=== PATIENT | female | born 1975 | race African-American/Black ===

== ENCOUNTER 2019-06-14 23:04 | Inpatient (IN) | payer OTHER ==
[~2019-06-14] VITALS: Ht 165.1 cm; Wt 117.9 kg
--- NOTE | 2019-06-14 23:04 | NUR ---
PT DAISY ALS. TAKEN TO BED 6
--- NOTE | 2019-06-14 23:06 | NUR ---
Dr. Jeter examining patient.
--- NOTE | 2019-06-14 23:06 | NUR ---
44 YEAR OLD FEMALE BROUGHT IN BY AMBULANCE FROM HOME AFTER BEING VERY WEAK AND BEING UNABLE TO GET UP FROM BATHROOM. IN TRANSPORT EMS GAVE 500ML NACL, 8ML ZOFRAN IVP. PER EMS THE FAMILY REPORTED THE PT HAD NAUSEA, VOMITTING, DIARRHEA. PATIENT UPON ARRIVAL COLD, LETHARGIC. PATIENT WOULD ANSWER QUESTIONS AOX4 BUT THEN BECOME UNRESPONSIVE, THEN WAKE AND CONTINUE TO ANSWER QUESTIONS. PATIENT STATES SHE HAS SEVERE UPPER ABDOMINAL PAIN THAT RADIATES TO BACK. PATIENT DENIES BLOOD. PATIENT STATES SHE HAD A SCHEDULED MRI FOR TOMORROW FOR A HERNIA AND MASS FOUND NEAR UTERUS AREA. PATIENT IN VISIBLE DISTRESS AND SAYING IT HURTS. PATIENT BREATHING EVEN AND UNLABORED, LUNGS CLEAR BL, SKIN COOL TO TOUCH. PATIENT PLACED ON 2L O2. ERMD AT BEDSIDE, 2 NURSES AT BEDSIDE. PATIENT PLACED ON BEDSIDE MONITOR. PMH - DM2, HTN ALLERGIES - NKA
[2019-06-14] MEDS ORDERED: NACL 0.9% 1,000 ML IV ONE (23:15)
--- NOTE | 2019-06-14 23:15 | NUR ---
BLOOD PRESSURE 67/38, HEART RATE 84 ERMD MADE AWARE
--- NOTE | 2019-06-14 23:20 | NUR ---
PATIENT PLACED ON BEAR HUGGER BY MEDICAL OFFICE RECEPTIONIST DUE TO BODY BEING COLD
[2019-06-14 23:25] VITALS: BP 63/33
[2019-06-14] MEDS ORDERED: fentaNYL 0.05 MG/ML VIAL IVP ONE (23:30)
--- NOTE | 2019-06-14 23:37 | NUR ---
PER ERMD TO HOLD ORDERED FENTANYL BECAUSE BP 72/42
[2019-06-14 23:50] LABS: BASOPHILS # (AUTO) 0.1 K/uL (0.00-0.22); BASOPHILS % (AUTO) 0.7 % (0.0-2.0); EOSINOPHILS # (AUTO) 0.1 K/uL (0-0.4); EOSINOPHILS % (AUTO) 0.7 % (0.0-4.0); HEMATOCRIT 31.2 % (36-48); HEMOGLOBIN 9.8 g/dL (12.0-16.0); LYMPHOCYTES # (AUTO) 3.3 K/uL (2.5-16.5); LYMPHOCYTES % (AUTO) 22.1 % (20.5-51.1); MEAN CORPUSCULAR HEMOGLOBIN 29 pg (27-31); MEAN CORPUSCULAR HGB CONC 31 g/dL (33-37); MEAN CORPUSCULAR VOLUME 92.7 fL (80-94); MONOCYTES # (AUTO) 0.7 K/uL (0.8-1.0); MONOCYTES % (AUTO) 4.5 % (1.7-9.3); NEUTROPHILS # (AUTO) 10.9 K/uL (1.8-7.7); PLATELET COUNT (AUTO) 321 K/uL (140-450); RED BLOOD CELL COUNT(AUTO) 3.36 MIL/uL (4.20-5.40); RED CELL DISTRIBUTION WIDTH 14.7 % (11.6-13.7); WHITE BLOOD COUNT (AUTO) 15.1 K/uL (4.8-10.8)
[2019-06-14] MEDS ORDERED: NOREPINEPHRINE 4 MG in DEXTROSE 5% 250 ML IV ONE (23:55)
--- NOTE | 2019-06-15 00:02 | NUR ---
CALLED LAB TO RELEASE EMERGENCY BLOOD PER DR. POLLACK
[2019-06-15] MEDS ORDERED: NOREPINEPHRINE 4 MG/4 ML VIAL IV ONE (00:07)
[2019-06-15 00:14] LABS: ALBUMIN 3.1 g/dL (3.4-5.0); ANION GAP 15.9 (8-16); CARBON DIOXIDE 25.3 mmol/L (21-32); CREATININE 1.9 mg/dL (0.6-1.3); POTASSIUM 3.2 mmol/L (3.5-5.1); TOTAL BILIRUBIN 0.1 mg/dL (0.0-1.0)
--- NOTE | 2019-06-15 00:15 | NUR ---
PER ERMVasile TO HOLD OFF ON ORDERED LEVOPHED TO SEE BLOOD PRESSURE WITH BLOOD ADMINISTRATION
--- NOTE | 2019-06-15 00:20 | NUR ---
Consent signed by Jimy EWING and Dr Jeter agreeing to administration of blood for emergency blood transfusion. Blood has been type and crossmatched. Blood sent from blood bank. Information on unit of blood checked against patient wristband at bedside by two nurses. All information matches. Patient or responsible alliance party informed of potential complications associated with blood transfusion. Informed of possible transfusion reaction symptoms. Aware of need to notify nurse at once of itching, shortness of breath, flushing, feeling of impending doom, or other symptoms not previously present. Vital signs taken within 5 minutes prior to initiation of transfusion. RN will remain with patient for first 15 minutes of transfusion at which time vital signs will be re-assessed.
--- NOTE | 2019-06-15 00:25 | NUR ---
PT TAKEN TO CT WITH RN, EMT, AND PRODUCT DEVELOPMENT INTERN
[2019-06-15 00:34] LABS: PROTHROMBIN TIME 10.9 secs (10.8-13.4)
--- NOTE | 2019-06-15 00:35 | NUR ---
PT RETURN FROM CT
--- NOTE | 2019-06-15 00:43 | NUR ---
OUTBOUND TELEMARKETER AT BEDSIDE
--- NOTE | 2019-06-15 00:45 | NUR ---
BP 95/61, ERMD MADE AWARE
--- NOTE | 2019-06-15 00:50 | NUR ---
Dr. Faribanks examining patient.
[2019-06-15] MEDS ORDERED: NACL 0.9% 1,000 ML IV ONE (00:55)
--- NOTE | 2019-06-15 01:00 | NUR ---
CALLED LAB REQUESTING EMERGENCY BLOOD PER DR. POLLACK. LAB AWARE
--- NOTE | 2019-06-15 01:00 | NUR ---
BLOOD TRANSFUSION COMPLETE, ERMD MADE AWARE
--- NOTE | 2019-06-15 01:10 | NUR ---
PATIENT APPEARS LESS LETHARGIC, IS MORE RESPONSIVE TO ANSWERING QUESTIONS, BUT STILL WOULD BECOME UNRESPONSIVE TO QUESTIONS AT TIMES
--- NOTE | 2019-06-15 01:30 | NUR ---
PER ERMD TO NOT GIVE FENTANYL AND NOREPINEPHRINE, WILL CANCEL ORDER
--- NOTE | 2019-06-15 01:40 | NUR ---
PATIENT MORE ALERT AND AWAKE, BREATHING EVEN AND UNLABORED.
[2019-06-15 01:46] LABS: APPEARANCE,URINE CLEAR (CLEAR); BILIRUBIN,URINE NEGATIVE (NEGATIVE); BLOOD, URINE NEGATIVE (NEGATIVE); COLOR,URINE YELLOW (YELLOW); LEUKOCYTE ESTERASE ,URINE NEGATIVE (NEGATIVE); NITRITE, URINE NEGATIVE (NEGATIVE); PH,URINE 5.5 (5.0-9.0); UGLUCOSE NEGATIVE (NEGATIVE)
--- NOTE | 2019-06-15 01:55 | NUR ---
OR TEAM AT BEDSIDE
--- NOTE | 2019-06-15 01:55 | NUR ---
TRANSPORT HERE FOR PATIENT
--- NOTE | 2019-06-15 02:01 | NUR ---
TRANSPORT TEAM TO CONTINUE BLOOD TRANSFUSION
--- NOTE | 2019-06-15 02:01 | NUR ---
PATIENT TAKEN TO SURGERY
[2019-06-15] MEDS ORDERED: ceFAZolin 1,000 MG VIAL ONE (02:04)
[2019-06-15] MEDS ORDERED: HYDROcodone/APAP 7.5/325 MG 1 TAB PO PRN (02:15)
[2019-06-15] MEDS ORDERED: ACETAMINOPHEN 325 MG TAB PO PRN (02:15)
[2019-06-15] MEDS ORDERED: ONDANSETRON 4 MG/2 ML VIAL IVP PRN ×2 (02:15→04:50)
[2019-06-15 02:37] LABS: BARBITURATE, URINE NEGATIVE ng/ml (NEG <=200); BENZODIAZEPINE, URINE NEGATIVE ng/mL (NEG <=200); CANNABINOID, URINE NEGATIVE ng/mL (NEG <=50); COCAINE, URINE NEGATIVE ng/mL (NEG <=300); OPIATE, URINE NEGATIVE ng/mL (NEG <=2000); PHENCYCLIDINE SCREEN,URINE NEGATIVE ng/mL (NEG <=25)
[2019-06-15] MEDS ORDERED: ATEN25TA7 PO (02:55)
[2019-06-15] MEDS ORDERED: LISI10TA11 PO (02:55)
[2019-06-15 03:16] LABS: MAGNESIUM 1.6 mg/dL (1.8-2.4); PHOSPHORUS 6.2 mg/dL (2.5-4.9); THYROID STIMULATING HORMONE 3.75 uIU/mL (0.34-3.74)
[2019-06-15] MEDS ORDERED: METF-430 PO (03:24)
[2019-06-15] MEDS ORDERED: CALC-577 PO (03:24)
[2019-06-15] MEDS ORDERED: HYDR-5122 PO (03:24)
[2019-06-15] MEDS ORDERED: [UNRECOGNIZED DRUG - CODE] PO (03:24)
[2019-06-15] MEDS ORDERED: ATOR20TA PO (03:24)
[2019-06-15] MEDS ORDERED: FERR325E14 PO (03:24)
[2019-06-15] MEDS ORDERED: CHOL100013 PO (03:24)
[2019-06-15] MEDS: HYDROmorphone 1 MG/ML AMP IVP PRN ×4 (05:00→05:30)
[2019-06-15] MEDS ORDERED: HYDROmorphone PFS 2 MG/ML SYR ONE (05:11)
[2019-06-15 05:33] LABS: BASOPHILS # (AUTO) 0.1 K/uL (0.00-0.22); BASOPHILS % (AUTO) 0.3 % (0.0-2.0); HEMATOCRIT 32.3 % (36-48); HEMOGLOBIN 10.4 g/dL (12.0-16.0); LYMPHOCYTES # (AUTO) 1.3 K/uL (2.5-16.5); MEAN CORPUSCULAR HEMOGLOBIN 30 pg (27-31); MEAN CORPUSCULAR HGB CONC 32 g/dL (33-37); MEAN CORPUSCULAR VOLUME 92.2 fL (80-94); MONOCYTES # (AUTO) 0.7 K/uL (0.8-1.0); MONOCYTES % (AUTO) 3.4 % (1.7-9.3); NEUTROPHILS # (AUTO) 18.1 K/uL (1.8-7.7); NEUTROPHILS % (AUTO) 89.8 % (42.2-75.2); PLATELET COUNT (AUTO) 244 K/uL (140-450); RED BLOOD CELL COUNT(AUTO) 3.51 MIL/uL (4.20-5.40); RED CELL DISTRIBUTION WIDTH 14.6 % (11.6-13.7)
--- NOTE | 2019-06-15 05:45 | NUR ---
PATIENT CAME INTO UNIT VIA BED FROM OPERATING ROOM. RECEIVED BEDSIDE REPORT FROM OR NURSE BJORN Goss PATIENT IS LYING IN BED, RESTING WITH EYES CLOSED. RESPIRATIONS EVEN AND UNLABORED. NO SOB OR DISTRESS NOTED. PATIENT WAKES WHEN NAME IS CALLED. IV ACCESS NOTED ON RIGHT AC 20 GAUGE, RIGHT HAND 20 GAUGE AND LEFT HAND 18 GAUGE, PATENT AND INTACT. MRSA SWAB DONE AND SENT TO LAB. INITIAL ASSESSMENT DONE. PATIENT NOTED WITH SURGICAL INCISION ON ABDOMEN. COVERED WITH ABDOMINAL BINDER. SONG CATHETER IN PLACE, DRAINING WELL. SCD IN PLACE. BED IN LOW, BED LOCKED. SAFETY MEASURES IN PLACE. CALL LIGHT WITHIN PATIENT REACH. WILL CONTINUE TO MONITOR PATIENT.
[2019-06-15 06:11] LABS: LYMPHOCYTES % (AUTO) 6.5 % (20.5-51.1); WHITE BLOOD COUNT (AUTO) 20.2 K/uL (4.8-10.8)
[2019-06-15 06:21] LABS: ALBUMIN 2.6 g/dL (3.4-5.0); ANION GAP 14.2 (8-16); CARBON DIOXIDE 23.3 mmol/L (21-32); CHOL/HDL RATIO 2.7 (1-4.5); CREATININE 1.5 mg/dL (0.6-1.3); MAGNESIUM 1.3 mg/dL (1.8-2.4); PHOSPHORUS 4.4 mg/dL (2.5-4.9); POTASSIUM 4.5 mmol/L (3.5-5.1); TOTAL BILIRUBIN 0.6 mg/dL (0.0-1.0)
[2019-06-15] MEDS: DEXT 5% /NACL 0.9% 1,000 ML IV SCH ×2 (06:44→14:50)
[2019-06-15] MEDS: MORPHINE SULFATE 2 MG/ML SYR IVP PRN ×4 (06:46→20:34)
--- NOTE | 2019-06-15 06:47 | NUR ---
PRN MORPHINE GIVEN FOR SEVERE PAIN PER PATIENT REQUEST. WILL CONTINUE TO MONITOR PATIENT.
--- NOTE | 2019-06-15 07:00 | NUR ---
RECEIVED REPORT FROM MILEAGE CLERK NURSE WILFRID-KAYLIN. PT RESTING IN BED, SLEEPING, ON FACE MASK 2L, HAS RIGHT AC #20 RUNNING D5/NS @100ML/HR, RIGHT HAND #20/SL, AND LEFT HAND #18/SL. SONG CATHETER IN PLACE. S/P HYSTERECTOMY WITH ABDOMINAL INCISIONS COVERED IN DRESSING AND 2 ABDOMINAL BINDERS. NO S/S OF RESPIRATORY DISTRESS OR DISCOMFORT NOTED AT THIS TIME. WILL CONTINUE TO MONITOR.
--- NOTE | 2019-06-15 07:25 | NUR ---
RAPID RESPONSE CALLED AFTER PT WAS NOT RESPONDING AND BEGAN TO SHAKE. VITAL SIGNS: TEMP. 97.7F, BP 113/80, HR 97, O2SAT 100%. Addendum: 06/15/19 at 1610 by Chelle Gaston RN BLOOD GLUCOSE 171
[2019-06-15 07:47] LABS: PROTHROMBIN TIME 10.5 secs (10.8-13.4)
[2019-06-15 08:00] VITALS: BP 125/82
[2019-06-15] MEDS: FERROUS SULFATE 325 MG TABEC PO SCH (08:16)
[2019-06-15] MEDS: DOCUSATE SODIUM 100 MG GELCAP PO SCH ×2 (08:16→20:34)
[2019-06-15] MEDS: FAMOTIDINE 20 MG TAB PO SCH (08:17)
[2019-06-15] MEDS: LISINOPRIL 10 MG TAB PO SCH (08:17)
[2019-06-15] MEDS: ATORVASTATIN 20 MG TAB PO SCH (08:17)
[2019-06-15] MEDS: ATENOLOL 25 MG TAB PO SCH (08:17)
--- NOTE | 2019-06-15 08:17 | NUR ---
SCHEDULED MEDICATIONS GIVEN AND TOLERATED WELL. BP MEDICATIONS NOT GIVEN DUE TO LOW BLOOD PRESSURE. PT AGREES. NO S/S OF RESPIRATORY DISTRESS OR DISCOMFORT NOTED AT THIS TIME. WILL CONTINUE TO MONITOR.
--- NOTE | 2019-06-15 08:50 | NUR ---
PT C/O PAIN 10/21. MORPHINE TOO CLOSE FROM PREVIOUS ADMINISTRATION TO GIVE. SPOKE WITH DR. FERNANDEZ AND WAS ORDERED TO GIVE NORCO. PT TOLERATED WELL. NO S/S OF RESPIRATORY DISTRESS OR DISCOMFORT NOTED AT THIS TIME. WILL CONTINUE TO MONITOR.
--- NOTE | 2019-06-15 08:59 | NUR ---
LACTIC ACID 6.2- CRITICAL LAB VALUE GIVEN AND REPORTED TO DR. FERNANDEZ. NO ORDERS GIVEN.
[2019-06-15] MEDS ORDERED: MAG SULF 2000 MG/WATER PREMIX 100 ML IV SCH (09:00)
--- NOTE | 2019-06-15 09:00 | NUR ---
PATIENT HAS BEEN SCREENED AND CATEGORIZED MODERATE NUTRITION RISK. PATIENT WILL BE SEEN WITHIN 3-5 DAYS OF ADMISSION. 06/17/19 06/19/[address]
--- NOTE | 2019-06-15 09:44 | NUR ---
SCHEDULED MEDICATION MAG RIDDER GIVEN AND TOLERATED WELL. NO S/S OF RESPIRATORY DISTRESS OR DISCOMFORT NOTED AT THIS TIME. WILL CONTINUE TO MONITOR.
--- NOTE | 2019-06-15 10:13 | NUR ---
DC PLANNIN YRS OLD FEMALE PATIENT WAS ADMITTED FROM HOME WITH A DX OF HEMOPERITONEUM. PT HAS A HX OF UTRINE FIBROSIS .CYCTIC OVARIAN MASS, HTN, HLD,DM AND ANEMIA. US OF THE ABDOMEN SHOWED A LARGE AMOUNT OF FREE FLUID IN THE ABDOMEN AND PELVIS. CT ABD/PELVIS CONFIRMED THE FINDINGS OF FREE FLUID IN THE ABDOMEN ALSO SHOWED A LIKELY RAPTURED POSSIBLE RUPTURED HEMORRHAGIC OVARIAN CYST. ADMINISTERED IVF,500ML NS BOLUS, 3 UNITS OF PRBC AND FFP. CONSULTED WITH MILITARY TECHNOLOGY SPECIALIST DR ERNST FOR EMERGENCY SURGERY. DC PLAN PER MD RECOMMENDATION . FAXED ALL THE CLINICALS TO [facility] [phone] CM TO FOLLOW. Addendum: 06/16/19 at 0955 by Akanksha Bryant DC PLANNING: PT HAS A DC ORDER FOR STABLE TO TRANSFERRED TO [facility]. CALLED [place] [phone] SPOKE WITH RONY MEDICAL DIRECTOR OF HOSPICE, PROVIDED ALL PATIENT'S INFO AND FAXED TO [phone] AND PER RONY TEJADA IS THE CM FOR THIS PATIENT ,SHE WILL FORWARDED ALL THE REQUEST AND IF HE HAS ANY QUESTION WILL CALL BACK. DC PLAN TO TRANSFER TO [facility] .CM TO FOLLOW
--- NOTE | 2019-06-15 10:42 | NUR ---
PT C/O PAIN 9-10 AND MEDICATED WITH MORPHINE. PT TOLERATED WELL. NO S/S OF RESPIRATORY DISTRESS OR DISCOMFORT NOTED AT THIS TIME. WILL CONTINUE TO MONITOR.
--- NOTE | 2019-06-15 11:30 | NUR ---
BLOOD GLUCOSE 171- PT TOLERATED WELL. PT CONTINUES TO BE NPO EXCEPT MEDS. DR. FERNANDEZ ORDERED NOT TO GIVE INSULIN COVERAGE.
[2019-06-15 12:00] VITALS: BP 127/76
[2019-06-15] MEDS ORDERED: INSULIN LISPRO SLIDING SCALE 100 UNITS/ML VIAL SUBQ PRN (12:45)
[2019-06-15] MEDS ORDERED: DEXTROSE 50% 50 ML SYR IVP PRN (12:45)
--- NOTE | 2019-06-15 13:30 | NUR ---
PT RESTING IN BED. NO S/S OF RESPIRATORY DISTRESS OR DISCOMFORT NOTED AT THIS TIME. WILL CONTINUE TO MONITOR.
--- NOTE | 2019-06-15 14:23 | NUR ---
AERIAL CROP DUSTER NOTE: Basic Screen: Yes High Risk DC Screen [place]: SAY AGUILAR Home Relationship: MOTHER Pre-Admission Living Arrangements: Lives with Other Prior ADL Independent Current Home Health Name/Tel: N/A Current DME/02 Name/Tel: N/A Current Hospice Name/Tel: N/A Current Dialysis Name/Tel: N/A Healthcare Decision Maker: Patient Advance Directive No Physician Orders for Life Sustaining Treatment Form No Patient/Family Have Educational Needs No Discipline: Case Mgt/Social Svcs Tentative Discharge Plan/Destination: No Needs Identified Will require assistance post discharge: No Referred to Senior Investment Manager: No Tentative Discharge Plan Summary: PATIENT IS A 44-YEAR-OLD FEMALE ADMITETD FOR HEMOPARITINEUM. PATIENT HAS PMHX OF UTERINE FIBROIDS, CYSTIC OVARIAN MASS, HTN, HLD, ANEMIA, AND DM-II. PATIENT WAS ADMITTED FROM HOME WHERE SHE REPORTS LIVING WITH FAMILY FRIENDS. SW MET WITH PATIENT AT BEDSIDE TO VERIFY DEMOGRAPHICS. PATIENT REPORTED NOW LIVING AT [address] [place] [address]. [address] [place] [address]. PATIENT PROVIDED EMERGENCY CONTACT: MOTHER - SAY AGUILAR [phone]. PATIENT STATED THAT AT BASELINE SHE IS INDEPENDENT WITH ADLS AND REPORTS NO HISTORY OF SUBSTANCE ABUSE OR MENTAL HEALTH. TENTATIVE DISCHARGE PLAN IS FOR PATIENT TO RETURN HOME. NO FURTHER NEEDS IDENTIFIED. Signature: MAYTE LOW Date: June 15, 2019 Time: 14:22
--- NOTE | 2019-06-15 14:45 | NUR ---
PT C/O PAIN 10/21 AND MEDICATED WITH MORPHINE. PT TOLERATED WELL. NO S/S OF RESPIRATORY DISTRESS OR DISCOMFORT NOTED AT THIS TIME. WILL CONTINUE TO MONITOR.
[2019-06-15 16:00] VITALS: BP 124/70
--- NOTE | 2019-06-15 16:30 | NUR ---
BLOOD GLUCOSE 169- WILL ADMINISTER INSULIN COVERAGE.
[2019-06-15] MEDS: BLOOD GLUCOSE MONITORING 1 DEV DEV FS SCH ×2 (17:02→21:47)
--- NOTE | 2019-06-15 17:05 | NUR ---
INSULIN COVERAGE GIVEN AND TOLERATED WELL. NO S/S OF RESPIRATORY DISTRESS OR DISCOMFORT NOTED AT THIS TIME. WILL CONTINUE TO MONITOR.
--- NOTE | 2019-06-15 19:10 | NUR ---
RECEIVED REPORT FROM DAY SHIFT NURSE. PT IN BED WITH HOB ELEVATED. AWAKE, ALERT, AND ORIENTED. ABLE TO MAKE NEEDS KNOWN. RESPIRATIONS EVEN AND UNLABORED. DENIES ANY PAIN OR DISCOMFORT AT THIS TIME. PT IS CALM AND COOPERATIVE TO CARE. PT HAS INCISION SITE ON ABD S/P HYSTERECTOMY. WOUND DRESSING CLEAN. IV ACCES ON R AC, R HAND, AND L HAND CLEAN AND INTACT. IVF INFUSING WELL. PLAN OF CARE DISCUSSED. PT VERBALIZED UNDERSTANDING. SAFETY MEASURES IN PLACE. CALL LIGHT WITHIN REACH. WILL CONTINUE TO MONITOR.
[2019-06-15 20:00] VITALS: BP 111/61
--- NOTE | 2019-06-15 20:34 | NUR ---
PT COMPLAINING OF PAIN 10/21. PRN MORPHINE GIVEN ORDERED. VITAL SIGNS ARE STABLE. SCHEDULED MEDICATIONS GIVEN. SAFETY MEASURS IN PLACE. WILL CONTINUE TO MONITOR.
--- NOTE | 2019-06-15 21:34 | NUR ---
PT IN BED ASLEEP. RESPIRATIONS EVEN AND UNLABORED. NOT IN DISTRESS. PT KEPT COMFORTABLE. CALL LIGHT WITHIN REACH. WILL CONTINUE TO MONITOR.
[2019-06-16] VITALS (7 sets, daily range): BP systolic 113–147; BP diastolic 64–85
[2019-06-16] MEDS: DEXT 5% /NACL 0.9% 1,000 ML IV SCH ×2 (00:35→09:24)
--- NOTE | 2019-06-16 00:35 | NUR ---
VITAL SIGNS TAKEN. PT DENIES ANY PAIN OR DISCOMFORT AT THIS TIME. IVF FLUID CHANGED. NO REQUESTS MADE AT THIS TIME. SAFETY MEASURES IN PLACE. WILL CONTINUE TO MONITOR.
[2019-06-16] MEDS ORDERED: LACTULOSE 20 GM/30 ML UDC PO ONE (02:20)
--- NOTE | 2019-06-16 02:29 | NUR ---
PT VERBALIZED DIFFICULTY PASSING GAS AND BOWEL. PT ALSO VERBALIZED FEELING OF BLOATEDNESS. MD AWARE. LACTULOSE GIVEN ORDERED. WILL CONTINUE TO MONITOR.
--- NOTE | 2019-06-16 04:10 | NUR ---
VITAL SIGNS STABLE. PT DENIES ANY PAIN OR DISCOMFORT. RESPIRATIONS EVEN AND UNLABORED. PERINEAL CARE, CATHETER CARE DONE. PT ASSISTED TURNING TO SIDE. SAFETY MEASURES IN PLACE. CALL LIGHT WITHIN REACH. WILL CONTINUE TO MONITOR.
[2019-06-16] MEDS: BLOOD GLUCOSE MONITORING 1 DEV DEV FS SCH ×3 (05:27→16:41)
--- NOTE | 2019-06-16 07:00 | NUR ---
PT ENDORSED TO DAYSHIFT NURSE FOR CONTINUITY OF CARE. PT IN STABLE CONDITION.
--- NOTE | 2019-06-16 07:10 | NUR ---
RECEIVED PATIENT FROM MIXING TECHNICIAN NURSE FOR CONTINUITY OF CARE. PATIENT IS AWAKE, LAYING IN BED. NO SIGNS OF DISTRESS NOTED. RESPIRATIONS EVEN AND UNLABORED, ON ROOM AIR. VISIBLE CHEST RISE AND FALL NOTED. ON TELE MONITORING. ABDOMEN SOFT AND NONTENDER. ON CCHO 60GM DIET. SKIN WARM AND DRY. SURGICAL INCISION WITH ABDOMINAL DRESSING INTACT AND NO DRAINAGE NOTED S/P HYSTERECTOMY LAST . IV IN THE RIGHT AC G20, SALINE LOCK. IV IN THE LEFT HAND G18, SALINE LOCK. IV IN THE RIGHT HAND G20, RUNNING D5NS AT 100 ML/HR. NO SIGNS OF INFILTRATION. BEDREST. UNIVERSAL FALL PRECAUTION. BED IN LOW POSITION. CALL LIGHT IS WITHIN REACH. WILL CONTINUE TO MONITOR.
[2019-06-16] MEDS: MORPHINE SULFATE 2 MG/ML SYR IVP PRN ×2 (07:39→15:27)
--- NOTE | 2019-06-16 07:43 | NUR ---
GIVEN MORPHINE FOR ABDOMINAL PAIN 08/20. EXPLAINED MEDICATION. WILL REASSESS FOR PAIN.
[2019-06-16] MEDS: DOCUSATE SODIUM 100 MG GELCAP PO SCH (08:02)
[2019-06-16] MEDS: FAMOTIDINE 20 MG TAB PO SCH (08:03)
[2019-06-16] MEDS: FERROUS SULFATE 325 MG TABEC PO SCH (08:03)
[2019-06-16] MEDS: ATORVASTATIN 20 MG TAB PO SCH (08:03)
[2019-06-16] MEDS: LISINOPRIL 10 MG TAB PO SCH (08:04)
[2019-06-16 08:05] LABS: BASOPHILS % (AUTO) 0.1 % (0.0-2.0); HEMATOCRIT 22.7 % (36-48); HEMOGLOBIN 7.8 g/dL (12.0-16.0); LYMPHOCYTES # (AUTO) 0.9 K/uL (2.5-16.5); LYMPHOCYTES % (AUTO) 11.6 % (20.5-51.1); MEAN CORPUSCULAR HEMOGLOBIN 31 pg (27-31); MEAN CORPUSCULAR HGB CONC 34 g/dL (33-37); MEAN CORPUSCULAR VOLUME 89.8 fL (80-94); MONOCYTES # (AUTO) 0.5 K/uL (0.8-1.0); MONOCYTES % (AUTO) 6.6 % (1.7-9.3); NEUTROPHILS # (AUTO) 6.7 K/uL (1.8-7.7); NEUTROPHILS % (AUTO) 81.7 % (42.2-75.2); PLATELET COUNT (AUTO) 189 K/uL (140-450); RED BLOOD CELL COUNT(AUTO) 2.53 MIL/uL (4.20-5.40); RED CELL DISTRIBUTION WIDTH 14.4 % (11.6-13.7); WHITE BLOOD COUNT (AUTO) 8.2 K/uL (4.8-10.8)
[2019-06-16] MEDS: ATENOLOL 25 MG TAB PO SCH (08:05)
[2019-06-16 08:12] LABS: ANION GAP 11.1 (8-16); CARBON DIOXIDE 27.7 mmol/L (21-32); CREATININE 1.1 mg/dL (0.6-1.3); POTASSIUM 3.8 mmol/L (3.5-5.1)
[2019-06-16 08:20] LABS: MAGNESIUM 1.9 mg/dL (1.8-2.4); PHOSPHORUS 1.9 mg/dL (2.5-4.9)
--- NOTE | 2019-06-16 08:29 | NUR ---
GIVEN SCHEDULED MEDICATIONS PO. EXPLAINED MEDICATIONS. PATIENT VERBALIZED UNDERSTANDING. BED IN LOW POSITION. CALL LIGHT IS WITHIN REACH. WILL CONTINUE TO MONITOR.
--- NOTE | 2019-06-16 08:39 | NUR ---
REASSESSED FOR PAIN. PATIENT STATED 2/10 ABD PAIN THAT IS TOLERABLE. WILL CONTINUE TO MONITOR.
[2019-06-16] MEDS ORDERED: SODIUM PHOS / POTASSIUM PHOS 1 PKT PDR PO SCH (09:00)
--- NOTE | 2019-06-16 09:23 | NUR ---
GIVEN NEUTRO PHOS MIXED WITH WATER. EXPLAINED MEDICATION. HANG NEW IV BAG OF D6NS AT A RATE OF 100 ML/HR.
--- NOTE | 2019-06-16 10:06 | NUR ---
FAMILY LEFT BELONGINGS FOR THE PATIENTS WHICH CONSISTS OF ONE PAIR OF BLACK SHOES, IPHONE CHARGE, ONE PANTS, ONE RED BRA, ONE PAIR OF GUZMAN SOCKS, ONE MULTI-COLORED UNDERWEAR. ONE GUZMAN SHIRT. HANDED THEM TO THE PATIENT
--- NOTE | 2019-06-16 10:17 | NUR ---
ASSISTED PATIENT SITTING UP BY THE BEDSIDE. PATIENT TOLERATED ACTIVITY GOOD. DENIES DIZZINESS. EDUCATED PATIENT HOW TO SPLINT AND USE OF INCENTIVE SPIROMETER.
--- NOTE | 2019-06-16 10:39 | NUR ---
INCENTIVE SPIROMETER DONE WITH 10 BREATHS, 1000 ML. PATIENT TOLERATED WELL.
[2019-06-16] MEDS: PIPERACILLIN/TAZOBACTAM 3.375 GM in DEXTROSE 5% 50 ML IV SCH ×2 (11:28→17:29)
--- NOTE | 2019-06-16 11:28 | NUR ---
SHAYAN BIANCHI VIA IVPB. CHECKED BS: 145, NO INSULIN COVERAGE. INFORMED PATIENT THAT SHE IS GOING TO BE TRANSFERRED TO EITHER [facility] OR [place]. PATIENT VERBALIZED UNDERSTANDING. WILL CONTINUE TO MONITOR.
--- NOTE | 2019-06-16 12:04 | NUR ---
VITAL SIGNS CHECKED. PATIENT IS EATING LUNCH AT THIS TIME. NO SIGNS OF DISTRESS NOTED. BED IN LOW POSITION. CALL LIGHT IS WITHIN REACH. WILL CONTINUE TO MONITOR.
--- NOTE | 2019-06-16 13:26 | NUR ---
DISCONTINUED IVF PER MD ORDER.
--- NOTE | 2019-06-16 14:43 | NUR ---
INCENTIVE SPIROMETER 10X PER HR, 750-1000 ML. PATIENT TOLERATED WELL.
--- NOTE | 2019-06-16 15:15 | NUR ---
PATIENT AMBULATED TO THE UNIT. DENIES ANY DIZZINESS. PATIENT TOLERATED ACTIVITY GOOD
--- NOTE | 2019-06-16 15:27 | NUR ---
GIVEN MORPHINE FOR 8 ABDOMINAL PAIN. EXPLAINED MEDICATION. WILL REASSESS PAIN
--- NOTE | 2019-06-16 16:27 | NUR ---
REASSESSED FOR PAIN. PATIENT IS ASLEEP. WILL CONTINUE TO MONITOR
--- NOTE | 2019-06-16 17:00 | NUR ---
RECEIVED A CALL FROM RONY FROM [facility]. SHE STATED THAT SCHNEIDER NEEDS A PHYSICAL COPY OF THE CHART, DISCHARGE SUMMARY, AND CD OF THE IMAGING. CHARGE NURSE IS AWARE.
[2019-06-16 17:26] LABS: BASOPHILS % (AUTO) 0.4 % (0.0-2.0); EOSINOPHILS % (AUTO) 0.3 % (0.0-4.0); HEMATOCRIT 22.1 % (36-48); HEMOGLOBIN 7.4 g/dL (12.0-16.0); LYMPHOCYTES # (AUTO) 1.2 K/uL (2.5-16.5); LYMPHOCYTES % (AUTO) 12.8 % (20.5-51.1); MEAN CORPUSCULAR HEMOGLOBIN 30 pg (27-31); MEAN CORPUSCULAR HGB CONC 34 g/dL (33-37); MEAN CORPUSCULAR VOLUME 89.7 fL (80-94); MONOCYTES # (AUTO) 0.7 K/uL (0.8-1.0); MONOCYTES % (AUTO) 7.5 % (1.7-9.3); NEUTROPHILS # (AUTO) 7.3 K/uL (1.8-7.7); PLATELET COUNT (AUTO) 181 K/uL (140-450); RED BLOOD CELL COUNT(AUTO) 2.47 MIL/uL (4.20-5.40); RED CELL DISTRIBUTION WIDTH 14.2 % (11.6-13.7); WHITE BLOOD COUNT (AUTO) 9.2 K/uL (4.8-10.8)
--- NOTE | 2019-06-16 17:29 | NUR ---
HANG ZOSYN VIA IVPB. EXPLAINED MEDICATION. WILL CONTINUE TO MONITOR.
--- NOTE | 2019-06-16 17:34 | NUR ---
REPORTED TO TERRELL FROM [facility] PATIENT'S LATEST CBC.
--- NOTE | 2019-06-16 18:42 | NUR ---
RECEIVED A CALL FROM RONY AT [facility], , PATIENT WILL BE IN ROOM 404.
--- NOTE | 2019-06-16 19:24 | NUR ---
ENDORSED PATIENT TO THE STONE PAVER NURSE FOR CONTINUITY OF CARE. PATIENT IS IN STABLE CONDITION.
--- NOTE | 2019-06-16 19:25 | NUR ---
RECD. RESTING IN BED, AWAKE, A/OX4, OBESE. ON BILATERAL LEG SEQUENTIALS. RESPIRATION EVEN AND UNLABORED. IV SALINE LOCK AT THE RIGHT AC, RIGHT HAND G20, LEFT HAND G18, ALL PATENT AND INTACT. INCISION IN THE ABDOMEN WITH DRESSING DRY AND INTACT. F/C PATENT DRAINING CLEAR YELLOW URINE. AWARE OF TRANSFER TO [facility]. VS STABLE. DENIES PAIN 0/10.
--- NOTE | 2019-06-16 19:26 | NUR ---
CALLED [facility] FOR REPORT. KHAI STATED TO CALL BACK BECAUSE SHE IS STILL GETTING REPORT FOR CHANGE OF SHIFT. WILL ENDORSE TO DEPUTY BUILDING GUARD NURSE TO CALL FOR REPORT. [phone]. PATIENT WILL BE IN ROOM 404
--- NOTE | 2019-06-16 19:42 | NUR ---
CALLED [facility] FOR REPORT. TEE EWING RECEIVED REPORT. SHE STATED TO KEEP ALL THE IV LINES AND SONG CATHETER. SHE IS AWARE PATIENT WILL BE IN ROOM 404. NO FURTHER QUESTIONS ASKED.
--- NOTE | 2019-06-16 20:10 | NUR ---
[facility] CAME, REPORT GIVEN. CUT ID BANDS.
--- NOTE | 2019-06-16 20:25 | NUR ---
TAKEN TO HOSPITAL LOBBY PARKING VIA GURNEY IN STABLE CONDITION ACCOMPANIED BY [facility]ANCE PERSONNEL FOR TRANSFER TO [facility]. CHARGE NURSE AND HOUSE WIRER HELPER MARCOS HILL.
--- NOTE | 2019-06-16 22:00 | NUR ---
INFORMED [place] NURSE RONY, LINE SUPERVISOR CALLED AND PRELIMINARY RESULT OF BLO0D CULTURE IS POSITIVE FOR GRAM + RODS AND FINAL RESULT WILL BE IN TWO DAYS FROM [facility].
== END 2019-06-16 18:25 | disposition short-term general hospital (02) | DRG 742 ==
LOC: MED 23:04 → MTU 06-15 02:15
PROVIDERS: ADMIT General Practice; ATTEND General Practice
PROC: 0UT90ZL Resection of Uterus, Supracervical, Open Approach (ICD-10-PCS; 2019-06-15)
PROC: 0WQF0ZZ Repair Abdominal Wall, Open Approach (ICD-10-PCS; 2019-06-15)
PROC: 30233N1 Transfusion of Nonautologous Red Blood Cells into Peripheral Vein, Percutaneous Approach (ICD-10-PCS; principal; 2019-06-15 01:30)
DX: D25.9 Leiomyoma of uterus, unspecified (principal); K66.1 Hemoperitoneum; N17.0 Acute kidney failure with tubular necrosis; D62 Acute posthemorrhagic anemia; Z68.41 Body mass index [BMI] 40.0-44.9, adult; E44.1 Mild protein-calorie malnutrition; J98.11 Atelectasis; E11.9 Type 2 diabetes mellitus without complications; E66.9 Obesity, unspecified; K43.9 Ventral hernia without obstruction or gangrene; N83.209 Unspecified ovarian cyst, unspecified side; I10 Essential (primary) hypertension; N93.9 Abnormal uterine and vaginal bleeding, unspecified; E66.01 Morbid (severe) obesity due to excess calories; E83.42 Hypomagnesemia
CPT/HCPCS: 36415; 71045; 74018; 80048; 80053; 80305; 81003; 82948; 83036; 83605; 83690; 83735; 83880; 84100; 84443; 84484; 85025; 85610; 85730; 86886; 86900; 86901; 86920; 87040; 87081; 87086; 93005; 96360; 96361; 99291; J0690; J1170; J1815; J2270; J2543; J3010; J3475; J3490; J7042; J7060; P9016; Q0092